=== PATIENT | female | born 1955 | race Caucasian/White ===

== ENCOUNTER 2023-04-14 10:44 | Outpatient (REF) | payer MEDICARE, SELFPAY | END 2023-04-14 10:45 | disposition home or self-care (01) | LOC: HO.BBR 10:44 | PROVIDERS: PCP Student in an Organized Health Care Education/Training Program; Visit Provider Internal Medicine | DX: Z13.89 Encounter for screening for other disorder (principal) ==

== ENCOUNTER 2023-05-12 09:50 | Outpatient (REF) | payer MEDICARE, SELFPAY | END 2023-05-12 09:51 | disposition home or self-care (01) | LOC: HO.BBR 09:50 | PROVIDERS: PCP Student in an Organized Health Care Education/Training Program; Visit Provider Internal Medicine | DX: Z13.89 Encounter for screening for other disorder (principal) ==

== ENCOUNTER 2023-06-16 07:48 | Outpatient (REF) | payer MEDICARE, SELFPAY | END 2023-06-16 07:49 | disposition home or self-care (01) | LOC: HO.BBR 07:48 | PROVIDERS: PCP Student in an Organized Health Care Education/Training Program; Visit Provider Internal Medicine | DX: Z13.89 Encounter for screening for other disorder (principal) ==

== ENCOUNTER 2023-07-15 09:02 | Outpatient (REF) | payer MEDICARE, SELFPAY | END 2023-07-15 09:03 | disposition home or self-care (01) | LOC: HO.BBR 09:02 | PROVIDERS: PCP Student in an Organized Health Care Education/Training Program; Visit Provider Internal Medicine | DX: Z13.89 Encounter for screening for other disorder (principal) ==

== ENCOUNTER 2023-08-16 08:50 | Outpatient (REF) | payer MEDICARE, SELFPAY | END 2023-08-16 08:51 | disposition home or self-care (01) | LOC: HO.BBR 08:50 | PROVIDERS: PCP Student in an Organized Health Care Education/Training Program; Visit Provider Internal Medicine | DX: Z13.89 Encounter for screening for other disorder (principal) ==

== ENCOUNTER 2023-10-14 08:51 | Outpatient (REF) | payer MEDICARE, SELFPAY | END 2023-10-14 08:52 | disposition home or self-care (01) | LOC: HO.BBR 08:51 | PROVIDERS: PCP Student in an Organized Health Care Education/Training Program; Visit Provider Internal Medicine | DX: Z13.89 Encounter for screening for other disorder (principal) ==

== ENCOUNTER 2023-12-15 13:27 | Outpatient (REF) | payer MEDICARE, SELFPAY | END 2023-12-15 13:28 | disposition home or self-care (01) | LOC: HO.BBR 13:27 | PROVIDERS: PCP Student in an Organized Health Care Education/Training Program; Visit Provider Internal Medicine | DX: Z13.89 Encounter for screening for other disorder (principal) ==

== ENCOUNTER 2024-02-14 09:08 | Outpatient (REF) | payer MEDICARE, SELFPAY | END 2024-02-14 09:09 | disposition home or self-care (01) | LOC: HO.BBR 09:08 | PROVIDERS: PCP Student in an Organized Health Care Education/Training Program; Visit Provider Internal Medicine | DX: Z13.89 Encounter for screening for other disorder (principal) ==

== ENCOUNTER 2024-04-13 09:01 | Outpatient (REF) | payer MEDICARE, SELFPAY | END 2024-04-13 09:02 | disposition home or self-care (01) | LOC: HO.BBR 09:01 | PROVIDERS: PCP Student in an Organized Health Care Education/Training Program; Visit Provider Internal Medicine | DX: Z13.89 Encounter for screening for other disorder (principal) ==

== ENCOUNTER 2024-07-13 08:53 | Outpatient (REF) | payer MEDICARE, SELFPAY | END 2024-07-13 08:54 | disposition home or self-care (01) | LOC: HO.BBR 08:53 | PROVIDERS: PCP Student in an Organized Health Care Education/Training Program; Visit Provider Internal Medicine | DX: Z13.89 Encounter for screening for other disorder (principal) ==

== ENCOUNTER 2024-10-16 08:46 | Outpatient (REF) | payer MEDICARE, SELFPAY | END 2024-10-16 08:47 | disposition home or self-care (01) | LOC: HO.BBR 08:46 | PROVIDERS: PCP Student in an Organized Health Care Education/Training Program; Visit Provider Internal Medicine | DX: Z13.89 Encounter for screening for other disorder (principal) ==

== ENCOUNTER 2025-01-17 08:51 | Outpatient (REF) | payer MEDICARE, SELFPAY ==
--- OUTSIDE RECORDS SUMMARY | 2001-11-14 11:10 | XMS_ITS | Continuity of Care Document ---
Author Organization [facility] [place] Address [address] [place] [phone] Phone Care Team Providers Care Clerical Manager Name Role Phone Unavailable Unavailable Unavailable Advance Directives Directive Yes / No Effective Date File Name No Information Encounters Encounter Description Practice Location Reason(s) For Visit Diagnoses Date Provider Providers Copied on Encounter Tony RAMIREZ, [facility] [place], [place], [id number], [place] tel:[phone] [facility] Michael RAMIREZ No Information 9200 2 No Information Family History Family Member Type Diagnosis Age At Onset No Information Payers Payer name Insurance type Covered republican ID Authoriza tion(s) [facility] Federal BL [id number] [facility] [id number] Social History Type Description Quantity Date Captured Comments Sex Female Smoking Status No Information Chief Complaint And Reason For Visit No Information Reason For Referral Reason For Referral No Information History Of Present Illness Encounter Date Complaint History Of Prese nt Illness No Information Functional Status Date Functional Assessmen t No Information Instructions Date Instruction Additional Infor mation No Information Assessments Type Assessment Date No Information Patient Care Teams Name Effective Dates (start - stop) Status Members No Information
--- OUTSIDE RECORDS SUMMARY | 2025-01-17 08:58 | XMS_ITS | Encounter Summary ---
Author Organization [facility] Address [address] [place] [address] Care Team Providers Care Fire Patrol Name Role Phone Nancy Killian MD Primary Care Provider [phone] Encounter Details Date Type Department Care Team ([facility] Contact Info) Description 12/22/2024 Telephone Internal Medicine - [place] [address] [facility] [address] [place] [phone] Nancy Killian MD 175 [facility] [address] [place] [address] Social History Tobacco Use Types Packs/Day Years Used Date Smoking Tobacco: Former Cigarettes Q uit: 07/19/2010 Smokeless Tobacco: Never Alcohol Use Standard Drinks/Week Comments Yes 5 (1 standard drink = 0.6 oz pur e alcohol) Housing Instability Answer Date Recorde d Are you worried that in the next 2 months you may not have stable housing? No 08/31/2024 Food Access & Nutrition Answer Date Rec orded Do you have access to a vari ety of food including fruits and vegetables? Yes 08/31/2024 Access to Healthcare Answer Date Record ed Within the last 3 months, ho w many times did you visit the emergency department for your medical care? 0 08/31/2024 Health Literacy Answer Date Recorded How often do you need to hav e someone help you when you read instructions, pamphlets, or other written material from your doctor or pharmacy? Never 08/31/2024 Caregiver: How often do you need to have someone help you when you read instructions, pamphlets, or other written material from your doctor or pharmacy? Not on file 08/31/2024 Financial Risk Answer Date Recorded How hard is it for you to pa y for the very basics like food, housing, medical care, and air conditioning / heating? Patient declined 08/31/2024 Transportation Answer Date Recorded Has the lack of transportati on kept you from meetings, work, or from getting things needed for daily living? No Has the lack of transportati on kept you from medical appointments or from getting medications? No 08/31/2024 Social Isolation Answer Date Recorded How often do you feel lonely or isolated from th ose around you? Rarely 08/31/2024 Food Risk Answer Date Recorded Within the past 12 months we worried whether our food would run out before we got money to buy more. Never true 08/31/2024 Within the past 12 months th e food we bought just didn't last and we didn't have money to get more. Never true 08/31/2024 Dependent Care Answer Date Recorded Do you need help finding or paying for care for your loved ones. For example, early childhood coordinator or elderly care for an older adult? No 08/31/2024 Education Answer Date Recorded Do you think completing more education or training, like finishing a GED, going to college, or learning a trade, would be helpful for you? Patient declined 08/31/2024 Employment and Income Answer Date Recor ded During the last four weeks, have you been actively looking for work? No 08/31/2024 Living Situation Answer Date Recorded What is your living situation? 0 08/31/2024 Comments Unknown Sex and Gender Information Value Date Recorded Sex Assigned at Not on file Legal Sex Female 11:05 PM EST Gender Identity Not on file Sexual Orientation Not on file documented as of this encounter Progress Notes * Susana Garcia MA - 12/22/2024 4:02 PM EDT FYI * Liz Demarco - 12/22/2024 3:26 PM EDT FYI: Pt is starting PT with [facility] on 12/26 for 26 visits documented in this encounter Plan of Treatment Upcoming Encounters Date Type Department Care Team (Late st Contact Info) Description 02/07/2025 8:00 AM EDT Appointment [facility] Ultrasound [address] [place] [address] 04/04/2025 9:00 AM EDT Office Visit [facility] Hematology Oncology [address] [place] [address] Zaira Cam MD [address] [place] [address] 06/25/2025 8:20 AM EST Appointment Radiology Department [address] [phone] 09/10/2025 9:15 AM EST Office Visit Internal Medicine - [place] [address] [phone] Nancy Killian MD [address] [address] documented as of this encounter Visit Diagnoses Not on filedocumented in this encounter Additional Health Concerns Assessment Noted Time PHQ-9 Depression Total Score: 0 09/07/19 25 2:54 PM EST documented as of this encounter Care Teams Fire Patrol Relationship Specialty Start Date End Date Nancy Killian MD [address] [address] PCP - General Internal Medicine 04/04/24 documented as of this encounter
--- OUTSIDE RECORDS SUMMARY | 2025-01-17 08:58 | XMS_ITS | Clinical Summary ---
Author Organization [facility] Address [address] [place] [address] Care Team Providers Care Healthcare Administrator Name Role Phone Lori Padilla MD Primary Care Provider [phone] Allergies Active Allergy Reactions Criticality Noted Date Comments Clam Shell 04/01/2023 Egg-Derived Products 04/01/2023 Erythromycin 04/01/2023 Nitrofurantoin 04/01/2023 Medications Medication Sig Dispensed Refills Start Date End Date Status vitamin D3 (cholecalciferol) 25 MCG (1000 UT) tablet TAKE ONE TABLET BY MOUTH EVERY DAY 0 01/27/2023 Active estradiol (ESTRACE) 0.1 MG/GM vaginal cream INSERT 1 GRAM VAGINALLY THREE TIMES A WEEK DIRECTED 0 01/11/2023 Active losartan-hydrochlorot hiazide (HYZAAR) 50-12.5 MG per tablet TAKE ONE TABLET BY MOUTH EVERY DAY 0 03/11/2023 Active pravastatin (PRAVACHOL) tablet 20 mg TAKE ONE TABLET BY MOUTH EVERY DAY 0 03/11/2023 Active Folic Acid (FOLATE PO) Take by mouth. 0 Active Cyanocobalamin (VITAMIN B12 PO) Take by mouth. 0 Acti ve Active Problems Problem Noted Date Diagnosed Date Shortness of breath 04/03/2024 Hereditary hemochromatosis 04/01/2023 Family History Medical History Relation Name Comments Cancer Father COLON Stroke Mother Cancer Sister BREAST Relation Name Status Comments Father Mother Sister Social History Tobacco Use Types Packs/Day Years Used Date Smoking Tobacco: Former Cigarettes Q uit: 2010 Smokeless Tobacco: Never Alcohol Use Standard Drinks/Week Comments Yes 5 (1 standard drink = 0.6 oz pur e alcohol) Sex and Gender Information Value Date Recorded Sex Assigned at Not on file Gender Identity Not on file Sexual Orientation Not on file Job Start Date Occupation Industry Not on file Not on file Not on file Last Filed Vital Signs Vital Sign Reading Time Taken Comments Blood Pressure 159/78 04/03/2024 9:10 AM EDT Pulse 71 04/03/2024 9:10 AM EDT Temperature 36.2 C (97.1 F) 04/03/2024 9:10 AM EDT Respiratory Rate - - Oxygen Saturation 100% 04/03/2024 9:10 AM EDT Inhaled Oxygen Concentration - - Weight 71.8 kg (158 lb 6.4 oz) 04/03/2024 9:10 A M EDT Height 165.1 cm (5' 5 ) 04/03/2024 9:10 AM EDT Body Mass Index 26.36 04/03/2024 9:10 AM EDT Plan of Treatment Health Maintenance Due Date Last Done Comments Hepatitis C Screening 1955 Depression Screening 1967 Preventative Health Evaluation 1973 Colon Cancer Screening (Colonoscopy) 2000 Breast Cancer Screening (Mammogram) 2005 Fall Risk Assessment 2020 Osteoporosis Screening (DEXA Scan) 2020 DTap / Tdap / Td (2 - Td or Tdap) 03/17/2022 03/17/2012 Pneumococcal Vaccine (2 of 2 - PCV) 12/10/2023 12/09/2022, 04/01/2020 COVID-19 Vaccine (5 - 2023- season) 2024 05/07/2022, 04/14/2021, 09/24/2020, Additional history exists Influenza Vaccine (Season Ended) 2025 05/05/2023, 05/07/2022, 04/01/2020, Additional history exists RSV Adult > 60+ Yrs or (1 - 1-dose 75+ series) 2030 Shingrix-Zoster Vaccine Completed 01/09/2020, 08/24 Hepatitis B Vaccines Aged Out No long er eligible based on patient's age to complete this topic RSV Ped < 20 months Aged Out No longe r eligible based on patient's age to complete this topic Care Teams Healthcare Administrator Relationship Specialty Start Date End Date Lori Padilla MD [address] [place] [phone] PCP - General Internal Medicine 04/03/24
== END 2025-01-17 08:52 | disposition home or self-care (01) ==
LOC: HO.BBR 08:51
PROVIDERS: PCP Student in an Organized Health Care Education/Training Program; Visit Provider Internal Medicine
DX: Z13.89 Encounter for screening for other disorder (principal)

== ENCOUNTER 2025-04-19 08:57 | Outpatient (REF) | payer MEDICARE, SELFPAY ==
--- OUTSIDE RECORDS SUMMARY | 2025-04-19 09:37 | XMS_ITS | Clinical Summary ---
Author Organization [facility] Address [address] [place] [address] Care Team Providers Care Forming And Assembling Supervisor Name Role Phone Lori Padilla MD Primary Care Provider [phone] Allergies Active Allergy Reactions Criticality Noted Date [...] 12/10/2023 12/09/2022, 04/01/2020 COVID-19 Vaccine (5 - 2024- season) 2025 05/07/2022, 04/14/2021, 09/24/2020, Additional history exists Influenza Vaccine (#1) 2025 3, 05/07/2022, 04/01/2020, Additional history exists RSV Adult > 60+ Yrs or (1 - 1-dose 75+ series) 2030 Shingrix-Zoster Vaccine Completed 01/09/2020, 08/24 Hepatitis B Vaccines Aged Out No long er eligible based on patient's age to complete this topic RSV Ped < 20 months Aged Out No longe r eligible based on patient's age to complete this topic Care Teams Forming And Assembling Supervisor Relationship Specialty Start Date End Date Lori Padilla MD [address] [place] [phone] PCP - General Internal Medicine 04/03/24
--- OUTSIDE RECORDS SUMMARY | 2025-04-19 09:37 | XMS_ITS | Clinical Summary ---
Author Organization [address] [place] [address] [place] [phone] Phone Care Team Providers Care Associate Principal Name Role Phone Nancy Killian MD Primary Care Provider [phone] Allergies Active Allergy Reactions Criticality Noted Date Comments Egg Diarrhea 04/15/2010 Erythromycin 11/04/2005 Other Reaction(s): Rash/Dermatitis Nitrofurantoin Monohyd/M-Cryst 11/05/2020 Macrobid Other 12/03/2009 Seasonal Allergies Shellfish Containing Products Diarrhea 2014 Clams Medications diphenhydrAMINE HCL 50 mg/30 mL liquid Take by mouth. Activ e estradioL (ESTRACE) 0.01 % (0.1 mg/gram) vaginal cream INSERT 1 GRAM VAGINALLY THREE TIMES A WEEK DIRECTED 2 Active saccharomyces boulardii (FLORASTOR) 250 mg capsule Take by mouth. Acti ve cholecalciferol (Vitamin D3) 50 mcg (2,000 unit) tablet Take 1 tablet (2,000 Units total) by mouth 1 (one) time each day. 90 tablet 3 5 09/11/19 26 Active losartan-hydroC HLOROthiazide (HYZAAR) 50-12.5 mg per tablet TAKE ONE TABLET BY MOUTH EVERY DAY 90 tablet 1 5 Active cyanocobalamin (VITAMIN B-12) 1,000 mcg tablet TAKE ONE TABLET BY MOUTH EVERY DAY 90 tablet 1 5 Active folic acid (FOLVITE) 800 mcg tablet TAKE ONE TABLET BY MOUTH EVERY DAY 90 tablet 1 5 Active pravastatin (PRAVACHOL) 20 mg tablet Take 1 tablet (20 mg total) by mouth 1 (one) time each day. 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 No path report included. Osteoporosis 10/30/2020 Tinnitus 03/28/2020 Essential hypertension 08/24/2019 Hyperlipidemia 08/24/2019 Arthritis of knee, right 06/09/2019 Hip arthritis 06/09/2019 Macrocytosis 05/16/2019 Impaired fasting glucose 01/20/2018 Pain in both feet 01/10/2018 Vertigo 04/23/2016 Seasonal allergic rhinitis 04/23/2016 Eczema 08/01/2013 Pilonidal cyst 03/17/2012 Uterine prolapse 10/21/2007 Snoring 09/24/2006 Encounters Date Type Department Care Team Description 04/04/2025 9:00 AM EDT Office Visit [facility] Hematology Oncology [address] [place] [address] Subramjorge a-Zaira Celaya MD Hereditary hemochromatosis ([facility]/HCC V24) (Primary Dx) 03/01/2025 7:50 AM EDT - 03/01/2025 11:59 PM EDT Hospital Encounter Radiology Department - [address] [phone] Thyroid nodule Discharge Disposition: Home or Self Care 02/27/2025 9:00 AM EDT Office Visit Endocrinology - [place] [address] [place] [address] Sofia Nagel PA Thyroid nodule (Primary Dx) 02/23/2025 11:20 AM EDT Ancillary Procedure Orthopedic Surgery [facility] [address] [facility] [address] [place] [address] 02/23/2025 11:00 AM EDT Office Visit Orthopedic Surgery [facility] 160 175 [facility] [address] [place] [phone] Katerina Price MD Left hip pain (Primary Dx) 02/08/2025 9:28 AM EDT - 02/08/2025 11:59 PM EDT Hospital Encounter Ultrasound - [place] [address] [place] [address] Thyroid nodule Discharge Disposition: Home or Self Care 02/07/2025 Telephone Endocrinology - [place] [id number] [place] [address] Ana Pelayo PA 01/25/2025 Telephone Internal Medicine - [place] 175 [facility] [address] [place] [phone] [place] Killian MD from Last 3 Months Immunizations Immunization Administration Dates Next Due Influenza Quadravalent, 0.5m l (Fluad) 65yo and older 04/21/2024 Influenza Quadravalent, MDCK , 0.5ml, preservative free (Flucelvax) 6mo and older 05/05/2018 Influenza trivalent, 0.5mL ( Fluad) 65yo and older 05/05/2023,05/07/2022,04/01/2020,04/30,05/22/2015,05/20/2010 Influenza trivalent, 0.5mL, preservative free (Fluarix; FluLaval; Fluzone) ages 6mo and older (Afluria) 3 years and older 05/04/2019,04/28/2017 Influenza, Unspecified 09/27/2021 Pfizer SARS-CoV-2 COVID-19, mRNA, LNP-S, preservative free 05/07/2022,04/14/2021,09/24/2020,09/23,09/03/2020 Pneumococcal polysaccharide 23 valent (Pneumovax 23) 2yo and older 12/09/2022,04/01/2020 Td Tetanus diptheria (Tdvax) 7yo and older 11/17/2016,12/26/2001 Td, Unspecified 12/26/2001 Tdap Tetanus diptheria acell ular pertussis (Boostrix; Adacel) 7yo and older 03/17/2012 Zoster Live 04/11/2015 Zoster recombinant (Shingrix ) 19yo and older 01/09/2020,08/24/2019 Surgical History Surgery Date Site/Laterality Comments BREAST BIOPSY Right PROCEDURE:BREAST BIOPSY COLONOSCOPY PROCEDURE:COLONOSCOPY BREAST LUMPECTOMY PROCEDURE:BREAST LUMPECTOMY Medical History Medical History Date Comments H/O William thyroiditis DX:H/O William thyroiditis Osteoporosis DX:Osteoporosis Prolapse of vaginal wall wit h midline cystocele DX: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 Thyroid nodule DX:Thyroid nodul e Hypertension DX:Hypertension HLD (hyperlipidemia) DX:HLD (hyp erlipidemia) Family History Medical History Relation Name Comments Cancer Father COLON Stroke Mother Breast cancer Sister 64 Cancer Sister 64 BREAST Relation Name Status Comments Father Mother Sister 64 Social History Tobacco Use Types Packs/Day Years Used Date Smoking Tobacco: Former Cigarettes Q uit: 07/19/2010 Smokeless Tobacco: Never Tobacco Cessation:Counseling Given: Not Answered Alcohol Use Standard Drinks/Week Comments Yes 5 [...] Record ed Within the last 3 months, evan dowling many times did you visit the emergency [...] care for your loved ones. For example, childcare teacher or elderly care for an older adult? [...] Date Recorded What is your living situation? Unrecognized valu e 08/31/2024 Comments No Sex and Gender Information Value Date Recorded Sex Assigned at Not on file Legal Sex Female 11:05 PM EST Gender Identity Not on file Sexual Orientation Not on file Obstetrics History Para Term AB IAB SAB Ectopic Multiple Livin g Live Births 2 2 2 2 Date Outcome GA Total Labor Labor/2nd/3rd Weight Sex Type Anes PTL Dorothy A1 A5 Name Clin Term Term Last Filed Vital Signs Vital Sign Reading Time Taken Comments Blood Pressure 138/69 04/04/2025 8:57 AM EDT Pulse 74 04/04/2025 8:57 AM EDT Temperature 36.4 C (97.6 F) 04/04/2025 8:57 AM EDT Respiratory Rate - - Oxygen Saturation 100% 04/04/2025 8:57 AM EDT Inhaled Oxygen Concentration - - Weight 71.7 kg (158 lb) 04/04/2025 8:57 AM EDT Height 167.6 cm (5' 6 ) 04/04/2025 8:57 AM EDT Body Mass Index 25.5 04/04/2025 8:57 AM EDT Plan of Treatment Upcoming Encounters Date Type Department Care Team (Late st Contact Info) Description 06/05/2025 8:30 AM EST Office Visit Orthopedic Surgery - [place] [address] [phone] Katerina Price MD [address] [address] 06/25/2025 8:20 AM EST Appointment Radiology Department [address] [address] 09/10/2025 9:15 AM EST Office Visit Internal Medicine - [place] [address] [phone] [place] Killian MD [address] [phone] 04/04/2026 9:00 AM EDT Office Visit [facility] Hematology Oncology [address] [place] [address] Zaira Cam MD [address] [place] [address] Health Maintenance Due Date Last Done Comments Pneumococcal Vaccine: 50+ Years (2 of 2 - PCV) 12/10/2023 12/09/2022, 04/01/2020 COVID-19 Vaccine ( season) 2025 05/07/2022, 05/06/2022, 04/14/2021, Additional history exists Influenza Vaccine (#1) 2025 , 04/21/2024, 05/05/2023, Additional history exists Social Influencers of Health Screening 08/31/2025 08/31/2024 Falls Risk Assessment 09/07/2025 09/07/2024 Medicare Annual Wellness Visit 09/07/2025 09/07/2024 Hypertension/CHF/CAD Annual BMP Blood Test 09/11/2025 09/11/2024, 01/04/2024, 01/04/2024 Breast Cancer Screening 06/19/2026 06/19/20, 06/11/2023, 07/02/2022, Additional history exists DTaP,Tdap,and Td Vaccines (5 - Td or Tdap) 11/17/2026 11/17/2016, 03/17/2012, 12/26/2001, Additional history exists Colorectal Cancer Screening: Colonoscopy 01/13/2028 01/12/2023 Cholesterol Screening (Lipid Panel) 09/11/2029 09/11/2024, 07/05/2023 RSV Immunization Adult Patients (1 - 1-dose 75+ series) 2030 Osteoporosis Screening (Bone Density Screening) 04/05/2033 04/05/2023, 10/29/2020 Hepatitis C Screening Completed 04/19/2012 Zoster Vaccines Completed 01/09/2020, 12/2019, 04/11/2015 Depression Screening Completed 09/07/2024 HIB Vaccines Aged Out No longer eligi ble based on patient's age to complete this topic HPV Vaccines Aged Out No longer eligi ble based on patient's age to complete this topic Hepatitis A Vaccines Aged Out No long er eligible based on patient's age to complete this topic Hepatitis B Vaccines Aged Out No long er eligible based on patient's age to complete this topic IPV Vaccines Aged Out No longer eligi ble based on patient's age to complete this topic MMR Vaccines Aged Out No longer eligi ble based on patient's age to complete this topic Meningococcal ACWY Vaccine Aged Out N o longer eligible based on patient's age to complete this topic Meningococcal B Vaccine Aged Out No l onger eligible based on patient's age to complete this topic RSV Immunization Patients Under 20 months Aged Out No longer eligible based on patient's age to complete this topic Varicella Vaccines Aged Out No longer eligible based on patient's age to complete this topic Procedures Procedure Name Priority Date/Time Associated Diagnosis Comments THYROID STIMULATING HORMONE WITH REFLEX TO FREE T4 AND FREE T3 Routine 03/05/2025 12:54 PM EDT Thyroid nodule US GUIDED FINE NDL ASP EACH ADDL LESION Routine 03/01/2025 8:42 AM EDT Thyroid nodule US GUIDED FINE NDL ASP 1ST LESION Routine 03/01/2025 8:42 AM EDT Thyroid nodule FINE NEEDLE ASPIRATION Routine 8:42 AM EDT Thyroid nodule US ARTHROCENTESIS ASP INJ JOINT MAJOR RIGHT Routine 02/23/2025 11:17 AM EDT Left hip pain [place] ARTHROCENTESIS/ASPIRAT ION/INJECTION MAJOR JOINT/BURSA W/O U/S GUIDANCE Routine 02/23/2025 11:00 AM EDT Left hip pain CBC WITH AUTO DIFFERENTIAL Routine 02/21/2025 8:51 AM EDT Elevated ferritin level CBC AND DIFFERENTIAL Routine 02/21/2025 8:51 AM EDT Elevated ferritin level FERRITIN Routine 02/21/2025 8:51 AM EDT Elevated ferritin level IRON AND TIBC Routine 02/21/2025 8:51 AM EDT Elevated ferritin level US HEAD NECK SOFT TISSUE Routine 02/08/2025 10:02 AM EDT Thyroid nodule COMPREHENSIVE METABOLIC PANEL Routine 09/11/2024 8:54 AM EST Medicare annual wellness visit, subsequent LIPID PANEL WITH REFLEX TO DIRECT LDL Routine 09/11/2024 8:54 AM EST Medicare annual wellness visit, subsequent Mixed hyperlipidemia MG MAMMO DIGITAL SCREENING W PEDRO BILAT Routine 06/19/2024 2:15 PM EST Encounter for screening mammogram for breast cancer DXA BONE DENSITY STUDY 1+ SITS AXIAL SKEL Routine 04/05/2023 2:25 PM EDT Encounter for screening for osteoporosis COLONOSCOPY Routine 01/12/2023 HEPATITIS C SCREENING Routine 04/19/2012 from Last 3 Months or Most Recently Relevant to Health Maintenance Results * Thyroid stimulating hormone with reflex to free t4 and free t3 (03/05/2025 12:54 PM EDT) TSH 2.76 0.40 - 4.00 mcIU/mL LAB CHEMISTRY METHOD 03/05/2025 2:40 PM EDT [facility] Blood Venous blood specimen / Unknown Venipuncture / Unknown 03/05/2025 12:54 PM EDT 03/05/2025 12:54 PM EDT us Sofia RAMIREZ LAB BLOOD ORDERABLES Final Result [facility] [address] [place] [address], * US Guided Fine Ndl Asp Each Addl Lesion (03/01/2025 8:42 AM EDT) Anatomical Region Laterality Modality Ultrasound 03/01/2025 9:09 AM EDT Addenda Addendum by Kourtney Morrow MD on 03/15/2025 8:44 AM EDT Addendum: Final Diagnosis A. Thyroid, right mid pole -fine needle aspirate (ThinPrep, direct smears): Benign (Lithonia Category II) Consistent with follicular nodular disease (includes adenomatoid nodule, colloid nodule, etc.) ? B. Thyroid, right lower lobe -fine needle aspirate (ThinPrep, direct smears): Benign (Lithonia Category II). Consistent with chronic lymphocytic (William) thyroiditis in the proper clinical context. -------- ADDENDUM -------- Dictated By: Kourtney Morrow Dictated Date: 03/15/2025 08:43 ET Assigned Physician: Kourtney Morrow Reviewed and Electronically Signed By: Kourtney Morrow Signed Date: 03/15/2025 08:44 ET Workstation ID: [id number] Transcribed By: Self Edit Transcribed Date: 03/15/2025 08:43 ET Impressions 03/01/2025 9:11 AM EDT Seemingly successful ultrasound-guided fine-needle aspiration of 2 right thyroid nodules. Pathologic analysis is pending. POS - [id number] -------- FINAL REPORT -------- Dictated By: Kourtney Morrow Dictated Date: 03/01/2025 09:09 ET Assigned Physician: Kourtney Morrow Reviewed and Electronically Signed By: Kourtney Morrow Signed Date: 03/01/2025 09:11 ET Workstation ID: [id number] Transcribed By: Self Edit Transcribed Date: 03/01/2025 09:09 ET Narrative 03/01/2025 9:11 AM EDT EXAM: Ultrasound-guided fine-needle aspiration of 2 right thyroid nodules. FINDINGS: Patient presents for ultrasound-guided fine-needle aspiration of 2 right thyroid nodules. Prior imaging from 02/08/2025 was reviewed. Risks and benefits of the procedure including specific risks of hemorrhage and infection were discussed with the patient before beginning the procedure. Written and verbal consent to proceed were given. 2.1 x 1.4 x 1.2 cm right mid nodule: The overlying skin was prepped with betadine and anesthetized with 1% buffered lidocaine. Using ultrasound guidance, 3 passes were made into the nodule using 25-gauge spinal needles. ThinPrep slides were prepared. No immediate complications. No postprocedural hematoma. 1.3 x 1.1 x 0.7 cm right lower nodule: The overlying skin was prepped with betadine and anesthetized with 1% buffered lidocaine. Using ultrasound guidance, 3 passes were made into the nodule using 25-gauge spinal needles. ThinPrep slides were prepared. No immediate complications. No postprocedural hematoma. Procedure Note Kourtney Morrow MD - 03/01/2025 EXAM: Ultrasound-guided fine-needle aspiration of 2 right thyroidnodules. FINDINGS: Patient presents for ultrasound-guided fine-needle aspiration of 2 rightthyroid nodules. Prior imaging from 02/08/2025 was reviewed. Risks andbenefits of the procedure including specific risks of hemorrhage andinfection were discussed with the patient before beginning the procedure.Written and verbal consent to proceed were given. 2.1 x 1.4 x 1.2 cm right mid nodule: The overlying skin was prepped withbetadine and anesthetized with 1% buffered lidocaine. Using ultrasoundguidance, 3 passes were made into the nodule using 25-gauge spinalneedles. ThinPrep slides were prepared. No immediate complications. Nopostprocedural hematoma. 1.3 x 1.1 x 0.7 cm right lower nodule: The overlying skin was prepped withbetadine and anesthetized with 1% buffered lidocaine. Using ultrasoundguidance, 3 passes were made into the nodule using 25-gauge spinalneedles. ThinPrep slides were prepared. No immediate complications. Nopostprocedural hematoma. IMPRESSION: Seemingly successful ultrasound-guided fine-needle aspiration of 2 rightthyroid nodules. Pathologic analysis is pending. POS - [id number] -------- FINAL REPORT -------- Dictated By: Kourtney Morrow Dictated Date: 03/01/2025 09:09 ET Assigned Physician: Kourtney Morrow Reviewed and Electronically Signed By: Kourtney Morrow Signed Date: 03/01/2025 09:11 ET Workstation ID: [id number] Transcribed By: Self Edit Transcribed Date: 03/01/2025 09:09 ET us Ignacio Bal MD IMG US PROCEDURES Edited Result - Final * US Guided Fine Ndl Asp 1st Lesion (03/01/2025 8:42 AM EDT) Anatomical Region Laterality Modality Ultrasound 03/01/2025 9:09 AM EDT Addenda Addendum by Kourtney Morrow MD on 03/15/2025 8:44 AM EDT Addendum: Final Diagnosis A. Thyroid, right mid pole -fine needle aspirate (ThinPrep, direct smears): Benign (Lithonia Category II) Consistent with follicular nodular disease (includes adenomatoid nodule, colloid nodule, etc.) ? B. Thyroid, right lower lobe -fine needle aspirate (ThinPrep, direct smears): Benign (Lithonia Category II). Consistent with chronic lymphocytic (William) thyroiditis in the proper clinical context. -------- ADDENDUM -------- Dictated By: Kourtney Morrow Dictated Date: 03/15/2025 08:43 ET Assigned Physician: Kourtney Morrow Reviewed and Electronically Signed By: Kourtney Morrow Signed Date: 03/15/2025 08:44 ET Workstation ID: [id number] Transcribed By: Self Edit Transcribed Date: 03/15/2025 08:43 ET Impressions 03/01/2025 9:11 AM EDT Seemingly successful ultrasound-guided fine-needle aspiration of 2 right thyroid nodules. Pathologic analysis is pending. POS - [id number] -------- FINAL REPORT -------- Dictated By: Kourtney Morrow Dictated Date: 03/01/2025 09:09 ET Assigned Physician: Kourtney Morrow Reviewed and Electronically Signed By: Kourtney Morrow Signed Date: 03/01/2025 09:11 ET Workstation ID: [id number] Transcribed By: Self Edit Transcribed Date: 03/01/2025 09:09 ET Narrative 03/01/2025 9:11 AM EDT EXAM: Ultrasound-guided fine-needle aspiration of 2 right thyroid nodules. FINDINGS: Patient presents for ultrasound-guided fine-needle aspiration of 2 right thyroid nodules. Prior imaging from 02/08/2025 was reviewed. Risks and benefits of the procedure including specific risks of hemorrhage and infection were discussed with the patient before beginning the procedure. Written and verbal consent to proceed were given. 2.1 x 1.4 x 1.2 cm right mid nodule: The overlying skin was prepped with betadine and anesthetized with 1% buffered lidocaine. Using ultrasound guidance, 3 passes were made into the nodule using 25-gauge spinal needles. ThinPrep slides were prepared. No immediate complications. No postprocedural hematoma. 1.3 x 1.1 x 0.7 cm right lower nodule: The overlying skin was prepped with betadine and anesthetized with 1% buffered lidocaine. Using ultrasound guidance, 3 passes were made into the nodule using 25-gauge spinal needles. ThinPrep slides were prepared. No immediate complications. No postprocedural hematoma. Procedure Note Kourtney Morrow MD - 03/01/2025 EXAM: Ultrasound-guided fine-needle aspiration of 2 right thyroidnodules. FINDINGS: Patient presents for ultrasound-guided fine-needle aspiration of 2 rightthyroid nodules. Prior imaging from 02/08/2025 was reviewed. Risks andbenefits of the procedure including specific risks of hemorrhage andinfection were discussed with the patient before beginning the procedure.Written and verbal consent to proceed were given. 2.1 x 1.4 x 1.2 cm right mid nodule: The overlying skin was prepped withbetadine and anesthetized with 1% buffered lidocaine. Using ultrasoundguidance, 3 passes were made into the nodule using 25-gauge spinalneedles. ThinPrep slides were prepared. No immediate complications. Nopostprocedural hematoma. 1.3 x 1.1 x 0.7 cm right lower nodule: The overlying skin was prepped withbetadine and anesthetized with 1% buffered lidocaine. Using ultrasoundguidance, 3 passes were made into the nodule using 25-gauge spinalneedles. ThinPrep slides were prepared. No immediate complications. Nopostprocedural hematoma. IMPRESSION: Seemingly successful ultrasound-guided fine-needle aspiration of 2 rightthyroid nodules. Pathologic analysis is pending. POS - [id number] -------- FINAL REPORT -------- Dictated By: Kourtney Morrow Dictated Date: 03/01/2025 09:09 ET Assigned Physician: Kourtney Morrow Reviewed and Electronically Signed By: Kourtney Morrow Signed Date: 03/01/2025 09:11 ET Workstation ID: [id number] Transcribed By: Self Edit Transcribed Date: 03/01/2025 09:09 ET us Ignacio Bal MD [facility] US PROCEDURES Edited Result - Final * Fine needle aspiration (03/01/2025 8:42 AM EDT) Final Diagnosis A. Thyroid, right mid pole -fine needle aspirate (ThinPrep, direct smears): Benign (Lithonia Category II) Consistent with follicular nodular disease (includes adenomatoid nodule, colloid nodule, etc.) B. Thyroid, right lower lobe -fine needle aspirate (ThinPrep, direct smears): Benign (Lithonia Category II). Consistent with chronic lymphocytic (William) thyroiditis in the proper clinical context. 03/05/2025 5:02 PM EDT [facility] Clinical Information mp rt thyroid enlarging nodule 03/05/2025 5:02 PM EDT [facility] Specimen A Adequacy Satisfactory for evaluation 03/05/2025 5:02 PM [facility] Specimen B Adequacy Satisfactory for evaluation 03/05/2025 5:02 PM [facility] Gross Description A. Thyroid, Right, mp rt thyroid enlarging nodule: Received 20ml of clear cytolyt 3 air dried, 3 alc fixed, 1 thin prep B. Thyroid, Right, lp rt thyroid new nodule: Received 20ml of clear cytolyt 3 air dried, 3 alc fixed, 1 thin prep 03/05/2025 5:02 PM EDT [facility] Disclaimer Unless otherwise specified, all tissue is 10% NB formalin fixed and paraffin embedded. Technical cytopathology services provided by [facility], at [address] [place] [address] (CLIA # [id number]/Richelle Hollingsworth MD, Machine Spreader.) 03/05/2025 5:02 PM T [facility] Fine Needle Aspirate Structure of right lobe of thyroid gland / Unknown 03/01/2025 8:42 AM EDT 03/02/2025 8:08 AM EDT Comment:mp rt thyroid enlarg ing nodule Specimen obtained by fine needle aspiration procedure (specimen) Structure of right lobe of thyroid gland / Unknown 03/01/2025 8:42 AM EDT 03/02/2025 7:59 AM EDT Comment:lp rt thyroid new no dule us Kourtney Morrow MD LAB PATHOLOGY ORDERABLES Final R esult [facility] [address] [place] [address], [place] [phone] * US Arthrocentesis Asp Inj Joint Major Right (02/23/2025 11:17 AM EDT) Anatomical Region Laterality Modality Extremity Right Ultrasound Narrative 02/23/2025 11:35 AM EDT PROCEDURE: Left hip Injection Note. The risks of the injection were discussed including: infection, neurovascular injury, steroid flare, fat atrophy, inflammatory response. The patient understood the risks and gave verbal consent. The patient was positioned supine with the anterior hip exposed. The area was prepped in a sterile fashion with Chloro-Prep. Vascular structures were identified using ultrasound power Doppler. Lidocaine 4ml was injected locally then slowly advanced using a 22g 3.5 spinal needle infiltrating to the femoral head-neck junction under ultrasound guidance. A small amount of anesthetic was injected into the capsule. Kenalog 40 mg and lidocaine 3 cc was injected into the hip joint without difficulty. The hip capsule was observed filling with the injection. Images were recorded and will permanently stored in patients medical record. The patient tolerated the procedure well. There were no complications. Aftercare was thoroughly discussed. Images were taken and are permanently stored and retrievable. us Katerina Price MD IMG US PROCEDURES Final Result * [place] ARTHROCENTESIS/ASPIRATION/INJECTION MAJOR JOINT/BURSA W/O U/S GUIDANCE (02/23/2025 11:00 AM EDT) Narrative Katerina Price MD - 02/23/2025 11:00 AM EDT Katerina Price MD 02/23/2025 11:38 AM L Inj/Asp: L hip joint Indications: pain Details: 22 G needle, anterior approach (guidance: US guided) Medications: 4 mL lidocaine 1 %; 40 mg triamcinolone acetonide 40 mg/mL Outcome: tolerated well, no immediate complications Informed Consent: Laterality: Left Relevant images/test results available and reviewed: yes Health status cleared: Yes Procedure/treatment, purpose, treatment alternatives, risks/potential complications and benefits explained: yes Risk/complications/benefits details: Risks include bleeding, infection, increase in pain Patient questions answered: yes Patient agrees, verbalizes understanding, and wants to proceed: yes Consent given by: Patient Informed consent discussion completed by Physician/ROBBIN with patient: Verbal Pre-procedure timeout performed: yes us Katerina Price MD IN CLINIC/BEDSIDE ORDERABLES F inal Result * (ABNORMAL) CBC auto differential (02/21/2025 8:51 AM EDT) [facility] WBC 5.4 4.8 - 10.8 K/mcL LAB HEMETOLOGY METHOD 02/21/2025 11:47 AM [facility] RBC 4.00 3.80 - 4.80 M/mcL LAB HEMETOLOGY METHOD 02/21/2025 11:47 AM [facility] Hemoglobin 13.0 11.5 - 16.0 g/dL LAB HEMETOLOGY METHOD 02/21/2025 11:47 AM [facility] Hematocrit 40.5 35.0 - 47.0 % LAB HEMETOLOGY METHOD 02/21/2025 11:47 AM [facility] MCV 100.5(H) 79.0 - 98.0 FL LAB HEMETOLOGY METHOD 02/21/2025 11:47 AM [facility] MCH 32.3(H) 27.0 - 32.0 pcg LAB HEMETOLOGY METHOD 02/21/2025 11:47 AM [facility] MCHC 32.1 32.0 - 37.0 g/dL LAB HEMETOLOGY METHOD 02/21/2025 11:47 AM [facility] RDW 12.8 11.0 - 15.0 % LAB HEMETOLOGY METHOD 02/21/2025 11:47 AM [facility] Platelets 381 130 - 400 K/mcL LAB HEMETOLOGY METHOD 02/21/2025 11:47 AM [facility] MPV 9.1 7.0 - 11.0 FL LAB HEMETOLOGY METHOD 02/21/2025 11:47 AM [facility] NRBC 0.0 <1.0 % LAB HEMETOLOGY METHOD 02/21/2025 11:47 AM [facility] NRBC Absolute 0.00 <0.10 K/mcL LAB HEMETOLOGY METHOD 02/21/2025 11:47 AM [facility] Neutrophils Relative 54.0 % LAB HEMETOLOGY METHOD 02/21/2025 11:47 AM [facility] Lymphocytes Relative 33.0 % LAB HEMETOLOGY METHOD 02/21/2025 11:47 AM [facility] Monocytes Relative 9.1 % LAB HEMETOLOGY METHOD 02/21/2025 11:47 AM [facility] Eosinophils Relative 2.8 % LAB HEMETOLOGY METHOD 02/21/2025 11:47 AM [facility] Basophils Relative 0.9 % LAB HEMETOLOGY METHOD 02/21/2025 11:47 AM [facility] Immature Granulocytes Relative 0.2 % LAB HEMETOLOGY METHOD 02/21/2025 11:47 AM [facility] Neutrophils Absolute 2.89 1.50 - 7.00 K/mcL LAB HEMETOLOGY METHOD 02/21/2025 11:47 AM [facility] Lymphocytes Absolute 1.77 1.00 - 5.00 K/mcL LAB HEMETOLOGY METHOD 02/21/2025 11:47 AM [facility] Monocytes Absolute 0.49 0.20 - 1.00 K/mcL LAB HEMETOLOGY METHOD 02/21/2025 11:47 AM [facility] Eosinophils Absolute 0.15 0.00 - 0.50 K/mcL LAB HEMETOLOGY METHOD 02/21/2025 11:47 AM EDT [facility] Basophils Absolute 0.05 0.00 - 0.20 K/[facility] LAB HEMETOLOGY METHOD 02/21/2025 11:47 AM EDT [facility] Immature Granulocytes Absolute 0.01 0.00 - 0.03 [facility] LAB HEMETOLOGY METHOD 02/21/2025 11:47 AM EDT [facility] Blood Venous blood specimen / Unknown Venipuncture / Unknown 02/21/2025 8:51 AM EDT 02/21/2025 8:51 AM EDT us Zaira Cam MD LAB BLOOD ORDERABLE S Final Result Performing Organization Address [facility] de Phone Number [facility] [address] [place] [address], * (ABNORMAL) Iron and TIBC (02/21/2025 8:51 AM EDT) Iron 174(H) 40 - 150 mcg/dL LAB CHEMISTRY METHOD 02/21/2025 12:17 PM EDT [facility] TIBC 275 250 - 450 mcg/dL LAB CHEMISTRY METHOD 02/21/2025 12:17 PM EDT [facility] Iron Saturation 63(H) 15 - 50 % LAB CHEMISTRY METHOD 02/21/2025 12:17 PM EDT [facility] Blood Venous blood specimen / Unknown Venipuncture / Unknown 02/21/2025 8:51 AM EDT 02/21/2025 8:51 AM EDT us Zaira Cam MD LAB BLOOD ORDERABLE S Final Result Performing Organization Address [facility]/ZIP Co de Phone Number [facility] [address] [place] [address], [place] [phone] * Ferritin (02/21/2025 8:51 AM EDT) Ferritin 247 8 - 252 ng/mL LAB CHEMISTRY METHOD 02/21/2025 12:17 PM EDT [facility] Blood Venous blood specimen / Unknown Venipuncture / Unknown 02/21/2025 8:51 AM EDT 02/21/2025 8:51 AM EDT us Zaira Cam MD LAB BLOOD ORDERABLE S Final Result [facility] ([facility]) [facility] [address] [place] [address], [place] [phone] * US Head Neck Soft Tissue (02/08/2025 10:02 AM EDT) Anatomical Region Laterality Modality Head and Neck Radiographic Tara ging 02/08/2025 1:00 PM EDT Narrative 02/08/2025 1:03 PM EDT Thyroid ultrasound. History follow-up on thyroid nodules comparison with prior studies, latest from 02/03/2024. Thyroid gland is heterogeneous in echotexture with increased vascularity on color Doppler examination. Right thyroid lobe is some enlarged measuring 5.3 x 1.9 x 2.2 cm, previously 3.5 x 1.7 x 1.5 cm. There is interval enlargement of the nodule in the midpole which is some slightly heterogeneous and thumb hypoechoic circumscribed borders. It measures 2.1 x 1.2 x 1.4 cm as opposed to 1.5 x 1.1 x 1 cm previously. There is a new nodule located in the lower pole measuring 1.3 x 0.7 x 1.1 cm. It revealed partially circumscribed borders and decreased in echogenicity. There is additional circumscribed essentially isoechoic nodule in the midpole measuring 0.9 x 0.6 x 0.8 cm. Left thyroid lobe was visualized measuring 3.8 x 1.6 x 1.3 cm. No focal lesions were identified. Isthmus measures 2 mm. CONCLUSIONS: Heterogeneous in echotexture hypervascular thyroid gland. Interval enlargement of the nodule in the midpole of the right thyroid lobe. Interval development of from nodule in the lower pole of the right thyroid lobe. New nodule in the midpole. Ultrasound-guided biopsy of the 2 dominant nodules in the right thyroid lobe is recommended. -------- FINAL REPORT -------- Dictated By: Lorena Wright Dictated Date: 02/08/2025 13:00 ET Assigned Physician: Lorena Wright Reviewed and Electronically Signed By: Lorena Wright Signed Date: 02/08/2025 13:03 ET Workstation ID: [id number] Transcribed By: Self Edit Transcribed Date: 02/08/2025 13:00 ET Procedure Note Lorena Wright MD - 02/08/2025 Thyroid ultrasound. History follow-up on thyroid nodules comparison with prior studies, latestfrom 02/03/2024. Thyroid gland is heterogeneous in echotexture with increased vascularityon color Doppler examination. Right thyroid lobe is some enlarged measuring 5.3 x 1.9 x 2.2 cm,previously 3.5 x 1.7 x 1.5 cm. There is interval enlargement of the nodulein the midpole which is some slightly heterogeneous and thumb hypoechoiccircumscribed borders. It measures 2.1 x 1.2 x 1.4 cm as opposed to 1.5 x1.1 x 1 cm previously. There is a new nodule located in the lower polemeasuring 1.3 x 0.7 x 1.1 cm. It revealed partially circumscribed bordersand decreased in echogenicity. There is additional circumscribed essentially isoechoic nodule in themidpole measuring 0.9 x 0.6 x 0.8 cm. Left thyroid lobe was visualized measuring 3.8 x 1.6 x 1.3 cm. No focallesions were identified. Isthmus measures 2 mm. CONCLUSIONS: Heterogeneous in echotexture hypervascular thyroid gland.Interval enlargement of the nodule in the midpole of the right thyroidlobe. Interval development of from nodule in the lower pole of the rightthyroid lobe. New nodule in the midpole. Ultrasound-guided biopsy of the 2dominant nodules in the right thyroid lobe is recommended. -------- FINAL REPORT -------- Dictated By: Lorena Wright Dictated Date: 02/08/2025 13:00 ET Assigned Physician: Lorena Wright Reviewed and Electronically Signed By: Lorena Wright Signed Date: 02/08/2025 13:03 ET Workstation ID: [id number] Transcribed By: Self Edit Transcribed Date: 02/08/2025 13:00 ET us Ana RAMIREZ IMG US PROCEDURES Final Result * (ABNORMAL) Lipid panel with reflex to direct LDL (09/11/2024 8:54 AM EST) Cholesterol 221(H) 0 - 200 mg/dL LAB CHEMISTRY METHOD 09/11/2024 1:06 PM EST [facility] Triglycerides 128 0 - 150 mg/dL LAB CHEMISTRY METHOD 09/11/2024 1:06 PM EST [facility] HDL 81 >=40 mg/dL LAB CHEMISTRY METHOD 09/11/2024 1:06 PM EST [facility] LDL Calculated 114(H) 0 - 100 mg/dL LAB CHEMISTRY METHOD 09/11/2024 1:06 PM EST [facility] VLDL Cholesterol Nick 25.6 mg/dL LAB CHEMISTRY METHOD 09/11/2024 1:06 PM EST [facility] Non HDL Chol. (LDL+VLDL) 140 <145 mg/dL LAB CHEMISTRY METHOD 09/11/2024 1:06 PM EST [facility] Chol/HDL Ratio 2.7 0.0 - 4.4 LAB CHEMISTRY METHOD 09/11/2024 1:06 PM EST [facility] Blood Venous blood specimen / Unknown Venipuncture / Unknown 09/11/2024 8:54 AM EST 09/11/2024 8:58 AM EST us Nancy Killian MD LAB BLOOD ORDERABLES Final Resul t [facility] [address] [place] [address], [place] [phone] * (ABNORMAL) Comprehensive metabolic panel (09/11/2024 8:54 AM EST) Sodium 140 133 - 145 mmol/L LAB CHEMISTRY METHOD 09/11/2024 1:00 PM [facility] Potassium 4.4 3.5 - 5.5 mmol/L LAB CHEMISTRY METHOD 09/11/2024 1:00 PM [facility] Chloride 107 96 - 110 mmol/L LAB CHEMISTRY METHOD 09/11/2024 1:00 PM [facility] CO2 23 21 - 32 mmol/L LAB CHEMISTRY METHOD 09/11/2024 1:00 PM [facility] Anion Gap 10 3 - 11 LAB CHEMISTRY METHOD 09/11/2024 1:00 PM [facility] Glucose 107(H) 70 - 100 mg/dL LAB CHEMISTRY METHOD 09/11/2024 1:00 PM [facility] BUN 14 5 - 25 mg/dL LAB CHEMISTRY METHOD 09/11/2024 1:00 PM [facility] Creatinine 0.79 0.50 - 1.10 mg/dL LAB CHEMISTRY METHOD 09/11/2024 1:00 PM [facility] eGFR 81 >=60 mL/min/1. 73m2 LAB CHEMISTRY METHOD 09/11/2024 1:00 PM [facility] Comment:Calculation based on the Chronic Kidney Disease Epidemiology Collaboration (CKD-EPI) equation refit without adjustment for race. BUN/Creatinine Ratio 17.7 LAB CHEMISTRY METHOD 09/11/2024 1:00 PM [facility] Calcium 9.2 8.5 - 10.5 mg/dL LAB CHEMISTRY METHOD 09/11/2024 1:00 PM [facility] AST (SGOT) 17 10 - 42 unit/L LAB CHEMISTRY METHOD 09/11/2024 1:00 PM [facility] ALT (SGPT) 22 10 - 60 unit/L LAB CHEMISTRY METHOD 09/11/2024 1:00 PM EST [facility] Alkaline Phosphatase 55 42 - 121 unit/L LAB CHEMISTRY METHOD 09/11/2024 1:00 PM EST [facility] Total Protein 7.0 6.0 - 8.0 g/dL LAB CHEMISTRY METHOD 09/11/2024 1:00 PM EST [facility] Albumin 3.9 3.2 - 5.0 g/dL LAB CHEMISTRY METHOD 09/11/2024 1:00 PM EST [facility] Total Bilirubin 0.8 0.0 - 1.4 mg/dL LAB CHEMISTRY METHOD 09/11/2024 1:00 PM EST [facility] Blood Venous blood specimen / Unknown Venipuncture / Unknown 09/11/2024 8:54 AM EST 09/11/2024 8:58 AM EST Nancy Killian MD LAB BLOOD ORDERABLES Final Resul t [facility] [address] [place] [address], [place] [phone] * MG Mammo Digital Screening w Pedro bilat (06/19/2024 2:15 PM EST) Anatomical Region Laterality Modality Breast Bilateral Mammography 06/19/2024 5:10 PM EST Impressions 06/19/2024 5:16 PM EST Stable mammographic appearance of the breasts. No evidence of malignancy is seen. A negative mammogram in the presence of a clinically suspicious palpable abnormality does not preclude the possibility of malignancy or alter the indications for biopsy. BI-RADS: Category 1: Negative RECOMMENDATION(S): 1: Routine screening mammogram BILATERAL in 1 year. Mammo Location: [facility], [address] [place] [address], [id number], . -------- FINAL REPORT -------- Dictated By: Emelia Fenton Dictated Date: 06/19/2024 17:10 ET Assigned Physician: Emelia Fenton Reviewed and Electronically Signed By: Emelia Fenton Signed Date: 06/19/2024 17:16 ET Workstation ID: [id number] Transcribed By: Self Edit Transcribed Date: 06/19/2024 17:10 ET Narrative 06/19/2024 5:16 PM EST EXAM: MAMMO DIGITAL SCREENING W PEDRO BILAT EXAM DATE: 06/19/2024 2:02 PM HISTORY: Screening. COMPARISON: Mammograms dating back to 04/08/2020 with most recent of 06/11/2023. TECHNIQUE: Bilateral digital breast tomosynthesis was performed in the CC and MLO projections. Computer aided detection with [employer] Pro[employer] AI 3D 3.1 was employed. TISSUE DENSITY: b. There are scattered areas of fibroglandular density. FINDINGS: No suspicious masses, grouped microcalcifications, or areas of architectural distortion are seen. The skin and vascularity are unremarkable. Procedure Note Emelia Fenton MD - 06/19/2024 EXAM: MAMMO DIGITAL SCREENING W PEDRO BILAT EXAM DATE: 06/19/2024 2:02 PM HISTORY: Screening. COMPARISON: Mammograms dating back to 04/08/2020 with most recent of06/11/2023. TECHNIQUE: Bilateral digital breast tomosynthesis was performed in the CCand MLO projections. Computer aided detection with iCAD ProFound AI 3D 3.1was employed. TISSUE DENSITY: b. There are scattered areas of fibroglandular density. FINDINGS: No suspicious masses, grouped microcalcifications, or areas ofarchitectural distortion are seen. The skin and vascularity areunremarkable. IMPRESSION: Stable mammographic appearance of the breasts. No evidence of malignancyis seen. A negative mammogram in the presence of a clinically suspicious palpableabnormality does not preclude the possibility of malignancy or alter theindications for biopsy. BI-RADS: Category 1: Negative RECOMMENDATION(S): 1: Routine screening mammogram BILATERAL in 1 year. Mammo Location: [facility], [address] [place] [address], [id number], . -------- FINAL REPORT -------- Dictated By: Emelia Fenton Dictated Date: 06/19/2024 17:10 ET Assigned Physician: Emelia Fenton Reviewed and Electronically Signed By: Emelia Fenton Signed Date: 06/19/2024 17:16 ET Workstation ID: [id number] Transcribed By: Self Edit Transcribed Date: 06/19/2024 17:10 ET us Self Referral [facility] IMG BI PROCEDURES Final Resu lt * DXA BONE DENSITY STUDY 1+ SITS AXIAL SKEL (04/05/2023 2:25 PM EDT) Anatomical Region Laterality Modality Bone Densitometr y 12/09/2022 8:45 AM EDT Narrative 04/06/2023 8:45 AM EDT BONE DENSITY (DEXA) Lumbar Spine T-score is 0.5. (SD relative to 20-29 y/o adult) Z-score is 2.4. (SD relative to age matched peers) This is considered normal by WHO criteria. Left Hip T-score is -1.5. Z-score is 0.1. This is considered osteopenia by WHO criteria. Lateral view of the spine demonstrates vertebral heights to be maintained. IMPRESSION: This patient is considered to have osteopenia by WHO criteria. This patient has a 9.7% risk of major osteoporotic fracture and a 1.2% risk of hip fracture over the next 10 years. (World Health Organization Fracture Risk Assessment) The [facility] Department of Internal Medicine recommends using National Osteoporosis Foundation (NOF) guidelines in treatment decisions related to osteoporosis. NOF guidelines suggest considering treatment for postmenopausal women and men aged 50 or older presenting with the following: History of hip or vertebral fracture. T-score = -2.5 (DXA) at the femoral neck, total hip, or spine, after appropriate evaluation to exclude secondary causes. Low bone mass (T-score between -1.0 and -2.5 at the femoral neck or spine) AND a 10-year probability of a hip fracture = 3% OR a 10-year probability of a major osteoporosis-related fracture = 20% based on the [place]-adapted WHO algorithm Please note that all treatment decisions require clinical judgment and consideration of individual patient factors, including patient preferences, co-morbidities, previous drug use, risk factors not captured in the FRAX model (e.g., frailty, falls, vitamin D deficiency, increased bone turnover, interval significant decline in bone density) and possible under- or over-estimation of fracture risk by FRAX. Optional alternative screening schedule based on noel Curran., [facility] August 06, 2011 for patients with osteopenia (based on hip BMD T-score) is as follows: * advanced osteopenia (T scores -2.00 to -2.49), BMD testing every year * moderate osteopenia (T scores -1.50 to -1.99), BMD testing every 5 years mild osteopenia or normal BMD (T scores -1.50 and higher), BMD testing every 15 years Procedure Note Emelia Fenton MD - 08/23/2023 BONE DENSITY (DEXA) Lumbar Spine T-score is 0.5. (SD relative to 20-29 y/o adult) Z-score is 2.4. (SD relative to age matched peers) This is considered normal by WHO criteria. Left Hip T-score is -1.5. Z-score is 0.1. This is considered osteopenia by WHO criteria. Lateral view of the spine demonstrates vertebral heights to bemaintained. IMPRESSION: This patient is considered to have osteopenia by WHO criteria. Thispatient has a 9.7% risk of major osteoporotic fracture and a 1.2% risk of hip fracture over the next10 years. (World Health Organization Fracture Risk Assessment) [facility] Department of Internal Medicinerecommends using National Osteoporosis Foundation (NOF) guidelines in treatment decisionsrelated to osteoporosis. NOF guidelines suggest considering treatment forpostmenopausal women and men aged 50 or older presenting with the following: History of hip or vertebral fracture. T-score = -2.5 (DXA) at the femoral neck, total hip, or spine, afterappropriate evaluation to exclude secondary causes. Low bone mass (T-score between -1.0 and -2.5 at the femoral neck or spine)AND a 10-year probability of a hip fracture = 3% OR a 10-year probability of a majorosteoporosis-related fracture = 20% based on the [place]-adapted WHO algorithm Please note that all treatment decisions require clinical judgment andconsideration of individual patient factors, including patient preferences, co- morbidities,previous drug use, risk factors not captured in the FRAX model (e.g., frailty, falls, vitaminD deficiency, increased bone turnover, interval significant decline in bone density) andpossible under- or over-estimation of fracture risk by FRAX. Optional alternative screening schedule based on noel Curran., NEJMJanuary 2011 for patients with osteopenia (based on hip BMD T-score) is as follows: * advanced osteopenia (T scores -2.00 to -2.49), BMD testing every year * moderate osteopenia (T scores -1.50 to -1.99), BMD testing every 5years mild osteopenia or normal BMD (T scores -1.50 and higher), BMD testingevery 15 years Gladys Ascencio DO IMG DXA PROCEDURES Final Result * Colonoscopy (01/12/2023) [facility] Colonoscopy no interpreta tion,abstr acted Anatomical Region Laterality Modality Other Historical Provider HEALTH MAINTENANCE Final Result * Hepatitis C Screening (04/19/2012) [facility] Hepatitis C Screening abstracted [facility] Provider HEALTH MAINTENANCE Final Result from Last 3 Months or Most Recently Relevant to Health Maintenance Insurance [employer] - [place] MEDICARE ADVANTAGE Advance Directives * Full Code - Confirmed (Latest Code Status on File) Date Activated Date Inactivated Comments 09/07/2024 2:55 PM This code stat us was ascertained in the following way: Code status discussion: discussion with patient To update the patient's code status, place a code status order. Do not modify or discontinue any currently active code status orders. Care Teams Associate Principal Relationship Specialty Start Date End Date Nancy Killian MD [address] [place] [phone] PCP - General Internal Medicine 04/04/24
== END 2025-04-19 08:58 | disposition home or self-care (01) ==
LOC: HO.BBR 08:57
PROVIDERS: PCP Student in an Organized Health Care Education/Training Program; Visit Provider Internal Medicine
DX: Z13.89 Encounter for screening for other disorder (principal)